=== PATIENT | female | born 1975 | race Caucasian/White ===

== ENCOUNTER → 2020-08-29 | Outpatient (CLI) | payer OTHER ==
[~2020-08-29] MED LIST: PROHANCE 279.3MG/ML 15ML VIAL As Ordered ONE
--- NOTE | 2020-08-29 17:30 | REP ---
INDICATION: F/U LIVER NODULE. COMPARISON: 06/05/2019, 01/19/2020. TECHNIQUE: Multiple sequences obtained in the axial and coronal planes prior to and following the intravenous administration of 13 mL ProHance. FINDINGS: Once again at the right dome of the liver there is a nodule which is somewhat hyperintense on T2 weighted images and demonstrates arterial phase enhancement, measuring approximately 1.6 cm in diameter. This has remained stable since 06/05/2019. No new liver nodule or lesion is seen. The gallbladder appears unremarkable. The spleen is normal in size with no intrinsic abnormality. The adrenal glands are normal. No pancreatic mass is seen. The kidneys are unremarkable and unchanged with no hydronephrosis. There is no adenopathy or free fluid in the abdomen. IMPRESSION: Stable 1.6 cm nodule at the right dome of the liver, no change since 06/05/2019. Again differential diagnosis would include adenoma or atypical hemangioma. This is most consistent with a benign etiology, particularly if the patient has no cancer history or risk factors for hepatic cancer. <Electronically signed by Ryan Knowles > 08/29/20 1811
== END ==
LOC: M RAD 13:10
PROVIDERS: ATTEND Internal Medicine Hematology & Oncology
DX: R93.2 Abnormal findings on diagnostic imaging of liver and biliary tract (principal)
CPT/HCPCS: 74183; A9576

== ENCOUNTER → 2022-01-23 | Outpatient (REF) | payer OTHER | LOC: M LAB REF 16:24 | PROVIDERS: ATTEND Obstetrics & Gynecology | DX: R30.0 Dysuria (principal) ==

== ENCOUNTER → 2023-07-01 | Outpatient (REF) | payer OTHER | LOC: M SFHCDERM 17:50 | PROVIDERS: ATTEND Physician Assistant | DX: D48.9 Neoplasm of uncertain behavior, unspecified (principal) ==